=== PATIENT | male | born 1970 | race Caucasian/White ===

== ENCOUNTER 2021-07-10 05:43 | Emergency (ER) | payer OTHER ==
[~2021-07-10 05:43] MED LIST: BENTYL10 MG PO; MYLICON80 MG PO; NORCO 5-325 TA1 EACH PO
[2021-07-10 06:28] LABS: BASOPHIL 0.5 % (0-2); EOSINOPHIL 4.4 % (0-5); HCT 42.8 % (42.0-52.0); HGB 14.4 g/dl (13.2-18.0); LYMPHOCYTE 35.7 % (15-48); MCH 30.5 pg (25.0-31.0); MCHC 33.6 g/dL (32.0-36.0); MCV 90.7 fL (78.0-100.0); MONOCYTE 8.6 % (0-12); MPV 10.6 fL (6.0-9.5); NEUTROPHIL 50.4 % (41-80); NRBC 0; PLT 243 K/uL (150-400); RBC 4.72 M/uL (4.70-6.00); RDW 12.7 % (11.5-14.0); WBC 7.8 K/uL (4.0-10.5)
[2021-07-10 07:03] LABS: BILIRUBIN - TOTAL 0.3 mg/dL (0.2-1.0); BUN/CREAT RATIO (CALC) 17.6 RATIO; CREATININE 0.85 mg/dL (0.67-1.17); GLOBULIN (CALCULATION) 2.8 g/dL; POTASSIUM 3.5 mmol/L (3.5-5.1); TOTAL PROTEIN 6.8 g/dL (6.4-8.2)
[2021-07-10] MEDS ORDERED: NORCO 5-325 TA1 EACH PO (09:48)
[2021-07-10] MEDS ORDERED: ONDANSETRON ODT4 MG PO (09:48)
[2021-07-10] MEDS ORDERED: SENOKOT8.6 MG PO (09:48)
== END 2021-07-10 10:07 | disposition home or self-care (01) ==
LOC: FER 05:43
PROVIDERS: Emergency Medicine
DX: K40.90 Unilateral inguinal hernia, without obstruction or gangrene, not specified as recurrent (principal); Z28.310 Unvaccinated for COVID-19
CPT/HCPCS: 36415; 80053; 85025; J7030; Q9967

== ENCOUNTER → 2021-08-14 | Day surgery (SDC) | payer OTHER ==
[~2021-08-14] VITALS: Ht 180.3 cm; Wt 84.4 kg
[~2021-08-14] MED LIST changes: +ACETAMINOPHEN500 M1 PO; +COLACE100 MG PO; +MOTRIN600 MG PO; +ONDANSETRON ODT4 MG PO; +OXY-IR 5MG5 MG PO; +SENOKOT8.6 MG PO
== END | disposition home or self-care (01) ==
LOC: FAS 06:46
DX: K40.90 Unilateral inguinal hernia, without obstruction or gangrene, not specified as recurrent (principal); K21.9 Gastro-esophageal reflux disease without esophagitis; Z72.89 Other problems related to lifestyle
CPT/HCPCS: J0690; J1100; J1170; J1644; J2250; J2405; J2704; J2710; J3010; J7120